=== PATIENT | female | born 1975 | race Caucasian/White ===

== ENCOUNTER 2023-02-13 09:31 | Emergency (ER) | payer BC, SELFPAY ==
[2023-02-13 09:50] VITALS: BP 116/78; PULSE 82; RESP 18; TEMP 36.6; O2SAT 98; BMI 35.2
--- NOTE | 2023-02-13 10:42 | EXP.UTC ---
Discharge Plan Disposition Patient Disposition: Home, Self-Care Condition: Good Prescriptions Prescriptions: No Action cetirizine [Zyrtec] 10 mg Tablet 10 mg PO DAILY Referrals Follow up/Referrals: Adarsh Fong MD [Primary Care Provider] - See instructions Activity Restrictions/Add. Instructions Additional Instructions/Restrictions: Start oral steriods tomorrow Calamine lotion to rash may help to dry the rash Oatmeal bathes may help to dry the rash and soothe the skin Return if needed Follow up with your Family Doctor if no improvement or any worsening of symptoms Clinical Impressions Clinical Impression: Poison shelbie dermatitis Instructions Patient Instructions: Summertime Rashes: Poison [place], [place], and [place], Poisonous Plants: [place], [place], and [place]: Beware the Oils, DI for Poison Shelbie Allergy Discharge ED Provider: Genet Ku [facility] General Stated complaint: Possible poison shelbie rash Mode of Arrival: Ambulatory Source of Information: Patient Limitations: No Limitations Time Seen by Provider: 02/13/23 10:42 Description of Symptoms (Recalled from Triage Doc. by RN): PATIENT C/O RASH TO ARMS AND FACE AFTER POISON SHELBIE EXPOSURE THIS MORNING HEENT Symptoms (Recalled from RN notes): No Resp Symptoms (Recalled from RN notes): No Skin Symptoms (Recalled from RN notes): Yes MS Symptoms (Recalled from RN notes): No Functional Status (Recalled from RN notes): WNL History of Present Illness Provider Complaint: Patient states that she got into poison shelbie on Monday States that she woke up Monday with patch on her right forearm that has continued to spread States that now she has it on both arms, face, chin, above her eyes and both legs Related Data Home Medications Medication Instructions Recorded Confirmed cetirizine 10 mg tablet (Zyrtec) 10 mg PO DAILY Allergy symptoms 02/13/23 02/13/23 Allergies Allergy/AdvReac Type Severity Reaction Status Date / Time erythromycin base Allergy Verified 02/13/23 10:02 Worker's Comp Is this a Worker's Comp case?: No [facility] Disclaimer: The information contained in this section may have been updated after the patient was seen, as this information can be updated by other users. Medical History (Updated 02/13/23 @ 10:59 by Genet Ku APRN) Skin cancer Surgical History (Updated 02/13/23 @ 10:02 by Kelly Correa RN) History of section History of hand surgery Social History Smoking Status: Unknown if ever smoked alcohol intake: never current occupational status: employed Travel in the last 8 weeks: None ROS Obtained: Yes All systems reviewed & no additional complaints except as documented and Yes Systems reviewed as appropriate & no additional complaints except as documented ENT Ears, Nose, Mouth, and Throat: Reports system reviewed and no additional complaints, except as documented and Reports as per HPI Cardiovascular Cardiovascular: Reports system reviewed and no additional complaints, except as documented and Reports as per HPI Respiratory Respiratory: Reports system reviewed and no additional complaints, except as documented and Reports as per HPI Gastrointestinal Gastrointestingal: Reports system reviewed and no additional complaints, except as documented and as per HPI Integumentary/Breasts Skin/Breast: Reports system reviewed and no additional complaints, except as documented, Reports as per HPI and Reports rash (poison shelbie on face, bilateral arms and legs) Neurologic Neurologic: Reports system reviewed and no additional complaints, except as documented and Reports as per HPI Physical Exam General General appearance: alert and in no apparent distress Respiratory Respiratory exam: Present normal lung sounds bilaterally; Absent respiratory distress or wheezes Cardiovascular Cardiovascular exam: Present regular rate, normal rhythm and normal heart sounds Neurological Exam Neurological exam: Present alert, orient
[2023-02-13 11:08] VITALS: BP 116/78; PULSE 82; RESP 18; TEMP 36.6; O2SAT 98
== END 2023-02-13 11:11 | disposition home or self-care (01) ==
PROVIDERS: Emergency Provider Nurse Practitioner; PCP Internal Medicine Adolescent Medicine
DX: L23.7 Allergic contact dermatitis due to plants, except food (principal); W60.XXXA Contact with nonvenomous plant thorns and spines and sharp leaves, initial encounter
CPT/HCPCS: 96372; 99204; 99212; G0463

== ENCOUNTER 2024-08-27 12:38 | Emergency (ER) | payer BC, SELFPAY ==
[2024-08-27] VITALS (8 sets, daily range): BP systolic 115–139; BP diastolic 74–92; PULSE 63–74; RESP 16–20; TEMP 36.6–36.7; O2SAT 95–98; BMI 33.6
--- NOTE | 2024-08-27 12:48 | ED_ITS ---
<Statement entered by Gary Callahan MD - 08/28/24 07:39> I was consulted by the MAYA, and we discussed the complexity of the problems being addressed. I approved the treatment and management plan for this patient's care in the emergency department, thus performing a substantive portion of the medical decision making. Gary Callahan MD Discharge Plan Disposition Patient Disposition: Home, Self-Care Condition: Good Prescriptions Prescriptions: No Action cetirizine [Zyrtec] 10 mg Tablet 10 mg PO DAILY prednisone [prednisone] 20 mg tablet 20 mg PO BID 5 Days Qty: 10 0RF Referrals Follow up/Referrals: Jerzy Reyes DO [Staff Physician] - See instructions Adarsh Fong MD [Primary Care Provider] - See instructions Activity Restrictions/Add. Instructions Additional Instructions/Restrictions: Please be nonweightbearing until I call you later this afternoon with your CT scan results. I have referred you to orthopedics. I do not know when the clinic reopens for bring close for the holidays but you may try on Monday. If not try next Monday to make your appointment. Continue taking Tylenol and Motrin for your symptomatic pain. Discharge addendum at 1644 that patient will be weightbearing as tolerated as there is no acute fracture. Clinical Impressions Clinical Impression: Injury of knee, left Print Language Print Language: Czech Discharge ED Provider: Gary Callahan General Adult HPI General Chief complaint: Extremity Injury, Lower Stated complaint: left knee pain Time Seen by Provider: 08/27/24 12:42 History of Present Illness HPI narrative: Patient presents for evaluation of left knee injury. Patient states that she had a previous left knee injury 2 years ago while jumping on a trampoline with significant medial pain and swelling however she never had any imaging nor any orthopedic evaluation. It eventually resolved. She was not ever unable to bear weight. Last night she had a misstep and ended up twisting and bending her knee at the same time with again pain in the medial joint line. She was able to bear weight afterwards but put it in a knee immobilizer and elevated it while sleeping last night. Today it hurts more and it is more difficult for her to bear weight. She denies any numbness tingling loss of motor or sensory distally. She has no calf tenderness. Related Data Home Medications ?Medication ?Instructions ?Recorded ?Confirmed cetirizine 10 mg tablet (Zyrtec) 10 mg PO DAILY Allergy symptoms 02/13/23 02/13/23 Previous Rx's ?Medication ?Instructions ?Recorded prednisone 20 mg tablet 20 mg PO BID 5 days #10 tabs 02/13/23 Allergies Allergy/AdvReac Type Severity Reaction Status Date / Time erythromycin base AdvReac Vomiting Verified 08/27/24 13:22 [facility] Disclaimer: The information contained in this section may have been updated after the patient was seen, as this information can be updated by other users. Medical History (Updated 08/27/24 @ 15:15 by PRANEETH Arellano) Skin cancer Surgical History (Updated 02/13/23 @ 10:02 by Kelly Correa RN) History of hand surgery History of section Social History (Updated 02/13/23 @ 11:09 by Genet Ku APRN) Smoking Status: Never smoker alcohol intake: never current occupational status: employed Travel in the last 8 weeks: None Have you lived/traveled outside [place] in past 30 days?: No Contact w/someone who lives/traveled outside US past 30 days?: No Exposure to someone with infectious disease in past 14 days?: No Do you have a fever (greater than 100.4 F or 38 C)?: No Have you tested positive for COVID-19: No Exposed to someone with COVID-19 in past 14 days?: No Do you have a sore throat?: No Do you have a cough?: No Do you have any weakness?: No Do you have any diarrhea?: No Are you experiencing any unusual bleeding?: No Do you have any muscle aches/pain?: No Do you have any abdominal pain?: No Are you experiencing loss of taste or smell?: No ROS Obtained: Yes Systems reviewed as appropriate & no additional complaints except as documented Physical Exam General General appearance: alert and in no apparent distress Respiratory Respiratory exam: Present normal lung sounds bilaterally Cardiovascular Cardiovascular exam: Present regular rate Neurological Exam Neurological exam: Present alert and oriented X3 Medical Decision Making Medical Records Medical records reviewed: Yes I reviewed the patient's medical records. Screening: Per USPSTF and CDC recommendations, given the prevalence of disease in our region, it is our hospital?s policy to screen for HIV and viral Hepatitis for all patients aged 18 and over and those with ongoing risk factors. Roger Inquiry Pt receiving controlled substance: No Vital Signs: 08/27/24 13:15 08/27/24 13:30 08/27/24 13:45 Temperature 97.8 F Temperature Source Oral Pulse Rate 65 68 Pulse Rate [Left] 63 Respiratory Rate 16 Blood Pressure 135/77 125/79 Blood Pressure [Right Arm] 139/92 H Blood Pressure Mean [Right Arm] 107 Blood Pressure Source Blood Pressure Source [Right Arm] Automatic Cuff Blood Pressure Position Blood Pressure Position [Right Arm] Sitting 02 Sat by Pulse Oximetry 97 95 96 Oxygen Delivery Method Room Air Room Air Room Air 08/27/24 14:00 08/27/24 14:15 08/27/24 14:30 Temperature Temperature Source Pulse Rate 67 64 66 Pulse Rate [Left] Respiratory Rate Blood Pressure 115/86 115/80 126/86 Blood Pressure [Right Arm] Blood Pressure Mean [Right Arm] Blood Pressure Source Blood Pressure Source [Right Arm] Blood Pressure Position Blood Pressure Position [Right Arm] 02 Sat by Pulse Oximetry 95 96 97 Oxygen Delivery Method Room Air Room Air Room Air 08/27/24 14:45 08/27/24 15:24 Temperature 98.1 F Temperature Source Oral Pulse Rate 64 74 Pulse Rate [Left] Respiratory Rate 20 Blood Pressure 117/74 139/88 Blood Pressure [Right Arm] Blood Pressure Mean [Right Arm] Blood Pressure Source Automatic Cuff Blood Pressure Source [Right Arm] Blood Pressure Position Sitting Blood Pressure Position [Right Arm] 02 Sat by Pulse Oximetry 97 Oxygen Delivery Method Room Air Room Air Orders (Tests/Meds): ED MEDICATIONS Discontinued Medications Generic Name Dose Route Start Last Admin Trade Name Freq PRN Reason Stop Dose Admin Acetaminophen 1,000 mg 08/27/24 12:58 08/27/24 13:23 Acetaminophen 500mg Tab PO 08/27/24 12:59 1,000 mg ONCE ONE Administration Ibuprofen 800 mg 08/27/24 12:58 08/27/24 13:23 Ibuprofen 400 Mg Tablet PO 08/27/24 12:59 800 mg ONCE ONE Administration Oxycodone HCl 5 mg 08/27/24 12:58 08/27/24 13:27 Oxycodone 5mg Immediate Release Tablet PO 08/27/24 12:59 Not Given ONCE ONE ORDERS Category Date Time Status CT knee LT wo con Stat Cat Scan 08/27/24 12:55 Taken Knee XR left 3 views [XR knee LT 3V] Stat Exams 08/27/24 12:55 Completed Medical Decision Narrative: In summary patient is a 49-year-old female who [facility] of left knee injury. Patient is hemodynamically stable upon arrival, afebrile. Physical exam is remarkable for swelling about the left knee, ecchymosis at the medial joint line but no palpable bony deformities. Patient has good PT DP and no dependent edema noted. Patient is intolerant of range of motion testing due to pain. Differential diagnosis includes fracture versus ligamentous injury versus meniscus injury etc. Initial workup will be conducted with plain film and CT scan of the left knee. Initial interventions include Tylenol ibuprofen oxycodone. Initial workup reviewed by me and my informal interpretation of both her plain film and CT imaging shows no evidence of acute fracture but does show a joint effusion. Upon repeat evaluation patient is able to tolerate toe-touch and weightbearing. Given this patient given Tomy wrap and crutches and referred to orthopedics for further workup. She will be weightbearing as tolerated. Critical Care Critical Care Time Critical Care Time: No
--- NOTE | 2024-08-27 12:55 | XR_ITS ---
FINAL REPORT CLINICAL HISTORY: Twisting injury COMPARISON: None FINDINGS: AP, lateral and oblique views of the left knee were obtained. There is no prior exam for comparison. There is no acute osseous abnormality of the left knee. The joint space is preserved. The soft tissues are normal. There is no joint effusion. IMPRESSION: No acute osseous abnormality of the left knee. Reviewed, Interpreted and Dictated by Nadege Smith MD Transcribed by Pauline Trevino Authenticated and [facility]
--- NOTE | 2024-08-27 12:55 | CT_ITS ---
FINAL REPORT TECHNIQUE: Thin section axial images were obtained through the left knee without contrast. Reconstruction images were obtained from the axial data. Exam was performed using dose reduction technique. CLINICAL HISTORY: Twisting injury COMPARISON: None FINDINGS: There is no acute fracture or dislocation. No acute osseous abnormality is identified. Mild degenerative change is present. There are small subchondral cysts in the anterior and posterior tibial plateau. A small joint effusion is present. The quadriceps and patellar tendons are intact. The posterior cruciate ligament is intact. The ACL is difficult to evaluate on this examination. IMPRESSION: No acute osseous abnormality of the left knee. Mild degenerative change is present. A small joint effusion is present. Reviewed, Interpreted and Dictated by Nadege Smith MD Transcribed by Pauline Trevino Authenticated and [facility]
[2024-08-27] MEDS: IBUPROFEN 400 MG TABLET 800 MG PO (13:23)
[2024-08-27] MEDS: ACETAMINOPHEN 500MG TAB 1000 MG PO (13:23)
== END 2024-08-27 15:25 | disposition home or self-care (01) ==
PROVIDERS: Emergency Provider Emergency Medicine; PCP Internal Medicine Adolescent Medicine
DX: S89.92XA Unspecified injury of left lower leg, initial encounter (principal); M25.562 Pain in left knee; Y93.44 Activity, trampolining
CPT/HCPCS: 73562; 73700; 99284

== ENCOUNTER 2024-09-23 09:00 | Outpatient (RCR) | payer OTHER, SELFPAY | END 2024-09-23 23:59 | disposition home or self-care (01) | LOC: PT 09:00 | PROVIDERS: Visit Provider Physician Assistant Surgical | DX: M25.562 Pain in left knee (principal); S89.92XA Unspecified injury of left lower leg, initial encounter | CPT/HCPCS: 97110; 97163; 97530 ==

== ENCOUNTER 2024-10-15 11:00 | Outpatient (RCR) | payer OTHER, SELFPAY ==
--- NOTE | 2024-10-15 13:19 | HMH.RHREAS ---
Rehab Reassessment Rehab OP Re-assessment Start: 09/30/24 08:08 Freq: Status: Active Protocol: Document 10/15/24 11:24 MAHNAZ (Rec: 10/15/24 13:15 MAHNAZ [id number]) E-signed By Joellen Paredes PT Lower Extremity Functional Index Activities Today, do you or would you have any difficulty at all with: a.Any of your usual work, housework or No difficulty school activities b. Your usual hobbies, recreational or A little bit of difficulty sporting activities c. Getting into or out of the bath No difficulty d. Walking between rooms No difficulty e. Putting on your shoes or socks No difficulty f. Squatting A little bit of difficulty g. Lifting an object, like a bag of No difficulty groceries from the floor h. Performing light activities around No difficulty your home i. Performing heavy activities around A little bit of difficulty your home j. Getting into or out of a car No difficulty k. Walking 2 blocks No difficulty l. Walking a mile No difficulty m. Going up or down 10 stairs (about 1 No difficulty flight of stairs) n. Standing for 1 hour A little bit of difficulty o. Sitting for 1 hour No difficulty p. Running on even ground Extreme difficulty or unable to perform activity q. Running on uneven ground Extreme difficulty or unable to perform activity r. Making sharp turns while running fast Extreme difficulty or unable to perform activity s. Hopping Extreme difficulty or unable to perform activity t. Rolling over in bed No difficulty LEFI Score Lower Extremity Functional Index Score 60 Rehab Re-assessment Subjective Subjective Pt reports she feels 99.8% improved since starting PT. Pt denies medial L knee pain but does report a slight twinge of the anteromedial knee with quick or unexpected movements . Pt reports continued caution with certain activities due to fear of reinjury. Pt reports the L knee clicks and catches but denies pain with this. Pt denies sense of knee instability. Pt reports compliance with HEP. Objective Objective Notes L knee palpation: 0/4 TTP of medial joint line or patellar tendon L knee AROM: 0-130 LLE MMT: 4+/5 grossly Assessment Assessment Notes Pt has attended 6 PT treatment sessions consisting of aerobic exercise, knee ROM, LE stretching/strengthening, modalities and HEP with good tolerance. Pt demonstrated improved subjective report of pain, LEFS score, L knee AROM, LE strength and functional activity tolerance since her initial evaluation. Overall, the pt has met all PT goals and is appropriate to discharge to independent HEP at this time. Patient goals met ST/3 LT/9 Goals Not Met n/a Revised Goals n/a Plan Plan Discharge to independent HEP Time and Billing Re-Eval Time 10 Re-Eval Billing Units 0 Charge for PT reassessment? No Charge for OT reassessment? No PHYSICIAN CERTIFICATION: I certify the specified therapy services for Zoila Lopez are required, authorized, and reviewed every 30 days.
== END 2024-10-15 23:59 | disposition home or self-care (01) ==
LOC: PT 11:00
PROVIDERS: Visit Provider Physician Assistant Surgical
DX: M25.562 Pain in left knee (principal); S89.92XA Unspecified injury of left lower leg, initial encounter
CPT/HCPCS: 97110; 97530

== ENCOUNTER 2025-08-01 07:52 | Outpatient (CLI) | payer BC, SELFPAY ==
--- NOTE | 2025-08-01 07:56 | MM_ITS ---
PROCEDURE INFORMATION: Exam: MG Bilateral Screening 3D Mammography Exam date and time: 08/01/2025 8:04 AM Age: 50 years old Clinical indication: Screening examination. Maternal aunt had breast cancer. TECHNIQUE: Imaging protocol: Bilateral Screening tomosynthesis and 2D mammography including computer-aided detection (CAD) when performed. COMPARISON: No relevant prior studies available.If prior mammograms are provided, I am happy to add an addendum. FINDINGS: MAMMOGRAPHY: Breast composition: The breasts are heterogeneously dense, which may obscure small masses. Mass: No suspicious mass. Architectural distortion: None. Calcifications: No suspicious calcifications. Asymmetric density: None. Skin thickening: None. Axillary adenopathy: None. IMPRESSION: No mammographic evidence of malignancy. Annual screening is recommended unless otherwise clinically indicated. ASSESSMENT: BI-RADS Category 1: Negative.
== END 2025-08-01 23:59 | disposition home or self-care (01) ==
LOC: RAD 07:54
PROVIDERS: PCP Internal Medicine Adolescent Medicine; Visit Provider Internal Medicine Adolescent Medicine
DX: Z12.31 Encounter for screening mammogram for malignant neoplasm of breast (principal); R92.333 Mammographic heterogeneous density, bilateral breasts; Z80.3 Family history of malignant neoplasm of breast
CPT/HCPCS: 77063; 77067